=== PATIENT | male | born 1940 | race Caucasian/White ===

== ENCOUNTER → 2016-09-18 10:46 | Outpatient (CLI) | payer MEDICARE, BC ==
[2015-04-27 13:33] VITALS: BMI 33.7
[~2016-09-18 10:46] MED LIST: ADVIL200 MG PO; BETAPACE 120 M120 MG PO; CORDARONE200 MG PO; FLOMAX0.4 MG PO; HYDROCODON-ACE1 EAC7 PO; METOPROLOL TART50 MG PO; XARELTO15 MG PO
== END | disposition home or self-care (01) ==
LOC: D.CT 09:30
DX: R91.8 Other nonspecific abnormal finding of lung field (principal)

== ENCOUNTER → 2017-07-10 11:09 | Outpatient (CLI) | payer MEDICARE, BC ==
[2015-04-27 13:33] VITALS: BMI 33.7
== END | disposition home or self-care (01) ==
LOC: D.CT 11:09
DX: R91.8 Other nonspecific abnormal finding of lung field (principal)

== ENCOUNTER → 2018-08-12 08:00 | Outpatient (CLI) | payer MEDICARE, BC | END | disposition home or self-care (01) | LOC: D.HCCARDIO 08:00 | DX: I48.0 Paroxysmal atrial fibrillation (principal) ==